=== PATIENT | female | born 1970 | race Caucasian/White ===

== ENCOUNTER 2017-06-13 14:54 | Emergency (ER) | payer SELFPAY ==
[~2017-06-13 14:54] MED LIST: BENTYL20 MG PO; DICLOFENAC PO; FLAGYL PO; FLEXERIL PO; FLEXERIL10 MG PO; LEVAQUIN PO; LISINOPRIL; LORTAB 10-5001 EACH PO; LORTAB 5/500 TA1 TA1 PO; PHENERGAN PO; PHENERGAN PR; PROMETHAZINE PR; PROZAC; ROBAXIN500 MG PO; ULTRAM PO; VICODIN PO; VITAMIN B-121000 MC1; VOLTAREN75 MG PO
[2017-06-13] MEDS ORDERED: SLEEP MEDICATION PO (14:56)
== END 2017-06-13 16:05 | disposition home or self-care (01) ==
LOC: SED 14:54
DX: B09 Unspecified viral infection characterized by skin and mucous membrane lesions (principal); I10 Essential (primary) hypertension; F32.9 Major depressive disorder, single episode, unspecified; Z88.5 Allergy status to narcotic agent; Z91.040 Latex allergy status; Z79.899 Other long term (current) drug therapy; F17.210 Nicotine dependence, cigarettes, uncomplicated
CPT/HCPCS: 99282